=== PATIENT | female | born 1945 | race Caucasian/White ===

== ENCOUNTER → 2017-10-07 08:33 | Outpatient (CLI) | payer MEDICARE, SELFPAY ==
[2017-10-07 10:59] LABS: Anion Gap 4 (5-15); BUN 23 mg/dL (7-18); BUN/Creat Ratio 31.1 RATIO (10-20); Calcium,Total 8.7 mg/dL (8.5-10.1); Chloride 104 mmol/L (98-107); Cholesterol 183 mg/dL (200); Creatinine, Serum 0.74 mg/dL (0.55-1.02); EST Glomerular Filtration Rate 82 mL/min (>60); Est Glom Filt Rate - Afr Amer 99 mL/min (>60); Glucose 112 mg/dL (74-106); High Density Lipoprotein 55 mg/dL; Potassium 4.5 mmol/L (3.5-5.1); Sodium Level 138 mmol/L (136-145); Triglycerides 106 mg/dL; Very Low Density Lipoprotein 21 mg/dL (5-40)
== END ==
PROVIDERS: Family Provider Family Medicine; PCP Family Medicine; Visit Provider Family Medicine
DX: I10 Essential (primary) hypertension (principal)
CPT/HCPCS: 36415; 80048; 80061

== ENCOUNTER → 2018-05-31 08:23 | Outpatient (CLI) | payer MEDICARE, SELFPAY ==
--- NOTE | 2018-05-31 08:26 | BI_ITS ---
MAMMOGRAPHY - BILATERAL SCREENING REASON FOR EXAM: Female, 72 years old. Routine annual screening examination. PERTINENT HISTORY: Mother with breast cancer. Aunt with breast cancer. TECHNIQUE: Digital bilateral breast jonas (3D mammographic acquisition) in the CC and MLO projections. 2-D mediolateral oblique (MLO) and craniocaudad (CC) views of both breasts were obtained. CAD: Full Field Digital Mammography with Computer Added Detection was performed. COMPARISON: Comparison is made with prior study dated November 27, 2016 and June 19, 2015. FINDINGS: Breast Composition: The breasts are almost entirely fatty. There are no dominant masses or suspicious calcifications. Stable small bilateral axillary lymph nodes. No other significant abnormalities are identified. There has been no significant change since the prior study. BI/SCREENING MAMM (CAD), BILAT IMPRESSION: Stable bilateral screening mammogram. Yearly follow-up mammogram recommended. (A) ASSESSMENT CATEGORY: BIRADS Category 2: Benign. A letter regarding these results will be sent to the patient by the facility within 30 days. Approximately 10% of breast cancers are not detected by mammography. A normal mammogram should not delay biopsy of a clinically suspicious abnormality. [id number] Electronically Signed: Aguilar Allen MD at 10:08 EST , Service support ,
== END ==
PROVIDERS: Family Provider Family Medicine; PCP Family Medicine; Referring Provider Family Medicine; Visit Provider Family Medicine
DX: Z12.31 Encounter for screening mammogram for malignant neoplasm of breast (principal)
CPT/HCPCS: 77063; 77067

== ENCOUNTER → 2018-12-24 10:59 | Outpatient (CLI) | payer MEDICARE, SELFPAY ==
[2018-12-24 12:55] LABS: Anion Gap 6 (5-15); BUN 26 mg/dL (7-18); BUN/Creat Ratio 33.9 RATIO (10-20); Calcium,Total 8.7 mg/dL (8.5-10.1); Chloride 106 mmol/L (98-107); Creatinine, Serum 0.77 mg/dL (0.55-1.02); EST Glomerular Filtration Rate 79 mL/min (>60); Est Glom Filt Rate - Afr Amer 95 mL/min (>60); Glucose 81 mg/dL (74-106); Sodium Level 140 mmol/L (136-145)
== END ==
PROVIDERS: Family Provider Family Medicine; PCP Family Medicine; Referring Provider Family Medicine; Visit Provider Family Medicine
DX: I10 Essential (primary) hypertension (principal)
CPT/HCPCS: 36415; 80048

== ENCOUNTER → 2019-01-21 11:40 | Outpatient (CLI) | payer MEDICARE, SELFPAY ==
--- NOTE | 2019-01-21 11:45 | RAD_ITS ---
STUDY: X-RAY - RIGHT KNEE REASON FOR EXAM: Female, 73 years old. Pain TECHNIQUE: 4 view(s) of the knee. COMPARISON: 2013 FINDINGS: Normal visualized distal femur. Normal visualized proximal tibia and fibula. Normal proximal tibiofibular articulation. There is no demonstrated fracture. There is mild degenerative arthrosis of the medial femorotibial compartment. There is severe degenerative arthrosis of the lateral femorotibial compartment with severe joint space narrowing. There is moderate degenerative arthrosis of the patellofemoral articulation. The soft tissue structures are unremarkable. RAD/Knee 4 or More Views IMPRESSION: Degenerative arthrosis. Electronically Signed: Patrice Mena MD at 12:01 EDT , Service support ,
== END ==
PROVIDERS: Family Provider Family Medicine; PCP Family Medicine; Referring Provider Family Medicine; Visit Provider Family Medicine
DX: M25.561 Pain in right knee (principal)
CPT/HCPCS: 73564

== ENCOUNTER → 2019-05-13 10:16 | Outpatient (CLI) | payer MEDICARE, SELFPAY ==
--- NOTE | 2019-05-13 10:21 | RAD_ITS ---
HISTORY: left thigh pain ADDITIONAL HISTORY: None provided. TECHNIQUE: Left femur 2 views Number of images including paperwork: 4 COMPARISON: None FINDINGS: BONES: No acute fracture. JOINTS: No subluxation. Severe degenerative changes of the left knee. SOFT TISSUES: No distinct foreign body. RAD/Femur Min 2 Views IMPRESSION: No acute osseous abnormality. at 0059 Reported and signed by: Debby Colon MD Electronically Signed: Debby Colon MD at 0:59 EST Tel , Service support ,
[2019-05-13 12:42] LABS: Absolute Lymphocyte Count 1.32 X10^3/uL (0.83-4.51); Absolute Neutrophil Count 7.8 X10^3/uL (2.0-7.7); Basophil# 0.06 X10^3/uL; Basophil% 0.6 % (0-1); Eosinophil# 0.07 X10^3/uL; Eosinophils% 0.7 % (0-5); Hematocrit 47.1 % (37-47); Hemoglobin 15.1 g/dL (12.0-15.0); Lymphocyte # 1.32 X10^3/ul (4.0); Lymphocyte % 13.4 % (19-41); Mean Corp Hgb Conc 32.1 g/dL (32-36); Mean Corpuscular Hgb 28.4 pg (27.0-32.0); Mean Corpuscular Volume 88.5 fL (81-99); Monocyte# 0.57 X10^3/uL; Monocyte% 5.8 % (0-10); NRBC Flagged by Analyzer 0 % (0-5); Neutrophil # 7.82 X10^3/uL (2.7-7.7); Neutrophil % 79.3 % (47-70); Platelet Count 338 K/mm3 (150-450); RBC Distribution Width CV 13.8 % (11.6-14.6); RBC Distribution Width SD 44.4 fl (35.1-43.9); Red Blood Count 5.32 M/mm3 (4.2-5.4); White Blood Count 9.9 K/mm3 (4.4-11.0)
[2019-05-13 13:45] LABS: Amylase 22 U/L (25-115); Lipase 179 U/L (73-393); Thyroid Stim Hormone (TSH) 1.84 uIU/mL (0.358-3.74)
== END ==
PROVIDERS: PCP Family Medicine; Referring Provider Family Medicine; Visit Provider Family Medicine
DX: M79.652 Pain in left thigh (principal); K59.9 Functional intestinal disorder, unspecified; I10 Essential (primary) hypertension
CPT/HCPCS: 36415; 73552; 82150; 83690; 84443; 85025

== ENCOUNTER 2019-06-17 13:00 | Outpatient (RCR) | payer MEDICARE, SELFPAY ==
--- NOTE | 2019-05-23 10:34 | HP.PTEVAL_ITS ---
Patient's Visit Information ELEAZAR WATSON is a 73 year old F referred to Physical Therapy by Dr. Georgia Houston MD with a diagnosis of L thigh pain. Date of Evaluation: 05/23/19 Physical Therapist: Joseph Rene DPT - Visit Plan Frequency: 2-3x /Week Duration: 4-6 Weeks Plan: Start wtih light flexion based exercises seated, as patient is unable to lie down currently. Seated HS stretching, lumbar extension as tolerated (slow porgression) May use US if need, but want to focus on core stability, and lumbar ROM. - Subjective Findings: Pt. is here today for her initial evaluation with diagnosis of L thigh pain. Pt. reports having increased pain for a few months now. She reports pain at medial thigh that goes from mid thigh to her knee. Pt. reports no pain while sitting, but has increased pain with all walking and standing. She is now been having to use a FWW for pain control and balance, she did not previosuly use one. Pt. reports no pain extending beyond her knee. Pt. reports no back pian currently either. Pt. reports her Left leg also feels weak at times, and feels like it may give out on her. She reprots no falls or mech of injury. She reports symtoms started after having to walk 1.5 miles while on a vacation. Pt. has been painful ever since, with increasing symptoms. Pt. reports no pain in AMs, but increases throughout the day. Increased pain with getting up and down and pain with sitting<>supine. Pt. is hopeful to reduce symptosm in order to get back to all recreational actviiteis without limitaitons. - Pain L left Pain Intensity (Out of 10): 7 Pain Intensity Range: 4, 10 - Objective POSTURE: pt. has very flexed posture in standing, increasd pain with attempting to improve. Pt. has general flexed posture in sitting as well. PALPATION: No pain with palpation of LLE, throughout. Pt. has no pain with palpation of lumabr spine either. NEURO: normal DTR of BLEs, normal sensation throughout bilateral LEs. No myotomal weakness noted. ROM: Pt. has tight HS- no pain, tight hip flexors- no pain, tigth IT band- no pain. LUMABR SPINE: flexion decreased in symptoms no better, extension- increase NW max loss, SB mod loss bilate increase NW, rotation mod loss increase NW. MMT: Pt. has 5/5 strenght throughout bilateral LEs. Core strength- poor. GAIT: Pt. has flexed posture, increased pain with attempting to increase erect posture. increased pain noted. Pt. has increased pain with increased walking, increased pain in L thigh, decreased upon sitting. STAIRS: Pt. has increased pain with stairs, uses BHR ith controlleve motion ,increased pain with descending. - Special Tests L/S Slump test left side: Negative L/S Slump test right side: Negative L/S Left Straight Leg Raise: Negative L/S Right Straight Leg Raise: Negative Lumbar Standing: Flexion - Mechanical Response: No effect Lumbar Standing: Flexion - Symptoms During Testing: Decreases Lumbar Standing: Flexion - Symptoms After Testing: No better Lumbar Standing: Extension - Mechanical Response: No effect Lumbar Standing: Extension - Symptoms During Testing: Increases Lumbar Standing: Extension - Symptoms After Testing: No worse L Hip Scour: Negative L Hip Quadrant - Intraarticular Pathology: Negative L Hip ELEANOR - Intraarticular Pathology: Negative L Hip FADDIR - Labrum: Negative L Hip Impingement Provocation - Labrum: Negative L Hip Trendelenberg - Glut Medius: Negative L Hip Ori - IT Band: Negative L Hip Resisted Exernal Derotation Test - GT Pain Syndrome: Negative L Knee Robson - Meniscus: Negative L Knee Apley - Meniscus: Negative L Knee Disco Test - Meniscus: Negative - Goals Goal 1:: LTG: Pt. to be I with HEP. Goal Time Frame: 4-6 Weeks Goal 2:: STG: Pt. to sleep throughout the night without increase in symptoms. Goal Time Frame: 2-4 Weeks Goal 3:: STG: Pt. to get up and down from bed without increase in symptoms. Goal Time Frame: 2-4 Weeks Goal 4:: STG: Pt. to walk with FWW unlimited distances with 0-1/10 pain in LLE. Goal Time Frame: 2-4 Weeks Goal 5:: LTG: Pt. to ambulate unlimited distances without LRD without increase in symptoms. Goal Time Frame: 4-6 Weeks Goal 6:: LTG: pt. to have increased lumbar ROM by 50% in all directions without increase in symptoms. Goal Time Frame: 4-6 Weeks - Rehabilitation Potential Physical Therapy Diagnosis: Pt. has signs and symptosm consistent with with L thigh pain, but had no pain with movements of LLE. Pt. did ahve incerased symptosm with movement fo her lumbar spine. Pt. has what appears to be spinal stenosis like symptoms. Pt. has decreased symptoms with sitting and flexion based exercises, increased symptosm with standing and extension based. I would like her to slowly increase extension, work on core strengthening and increased HS/hip flexor length. Rehabilitation Potential: Good - Anticipated Interventions Patient/Client Instruction: Educate patient on: Condition, Plan of Care, Risk Factors, Benefits of Fitness Program For the Purpose of:: To foster healthy habits, To improve decision making, To facilitate caregiver knowledge, To improve self management, To prevent re- injury, To improve ability to perform tasks related to life management, To improve tolerance to ADL's Therapeutic Exercise to Include: Strength training, Power training, Endurance training, Balance training, Postural training, Flexibilty training, Gait and locomotor training, Passive ROM, Active ROM, Dynamic Lumbar Stabilization, Chema Exercises For the Purpose of:: To decrease pain, To increase ROM, To improve nutrient delivery to tissue, To increase oxygenation perfusion, To improve muscle performance and motor function, To improve ability to perform ADL's, To improve gait and locomotor functions, To improve health of tissue, To decrease soft tissue restriction, To increase flexibility/ROM, To improve endurance, To improve balance, To improve safety with gait Manual Therapy Techniques to Include: Mobilization, Passive ROM, Functional dry needling, Soft tissue mobilization For the Purpose of:: To decrease pain, To decrease swelling/inflammation, To i ncrease ROM, To improve nutrient delivery to tissue, To increase oxygenation perfusion Thermo therapy (hot pack): Yes Ultrasound (thermal/non thermal): Yes For the Purpose of:: To decrease swelling/inflammation, To increase ROM Thank you for the opportunity to evaluate your patient. For Medicare and Medicare HMO plans, please review the plan of care and approve it. It will need to be FAXED BACK to us at [phone] for Medicare purposes. For Medicare only, by signing this I certify the plan of care. Please let me know if there are questions or concerns regarding this plan of care. Physician Signature: Date:
--- NOTE | 2019-06-20 10:03 | HP.PTDCSUM ---
HP - PT D/C Summary It has been my pleasure to treat ELEAZAR WATSON under orders from Dr. Georgia Houston MD, for the diagnosis of L thigh pain for a total of 10 visit(s). Discharge Date: 06/17/19 Please see the following information for a summary of their discharge status. - Subjective Subjective: Pt. reports I have been douing better, but not all the way there. Pt. reporst being HEP compliant. Pt. reports always feeling better when she leaves PT. Pt. reports no problems with HEP. Pt. is still using FWW, but not much in home. - Pain L left Pain Intensity (Out of 10): 1 - Overall Improvement % Improvement: 50 - Objective Objective/Function: ROM: LUMBAR SPINE: flexion nil loss NE, extension min/mod loss increase NW, SB ni loss bE, rotation- nil loss NE. Pt. has normal hip ROM bilat. MMT: 4/5 throughout, 4-/5 core strength. TIght hip flexors and HS bilat. GAIT: Pt. was able to ambulate 100' with out AD withotu limitations without increase in symptoms after stretching and core stability today. STAIRS: Pt. to step to pattern with BHR withotu increase in symptoms. - Goals Goal 1:: LTG: Pt. to be I with HEP. Goal Progress: Goal Met Goal 2:: STG: Pt. to sleep throughout the night without increase in symptoms. Goal Progress: Goal Met Goal 3:: STG: Pt. to get up and down from bed without increase in symptoms. Goal Progress: Progressing Goal 4:: STG: Pt. to walk with FWW unlimited distances with 0-1/10 pain in LLE. Goal Progress: Progressing Goal 5:: LTG: Pt. to ambulate unlimited distances without LRD without increase in symptoms. Goal Progress: Progressing Goal 6:: LTG: pt. to have increased lumbar ROM by 50% in all directions without increase in symptoms. Goal Progress: Progressing - Plan Plan: Pt. to be DC from PT at this point intime. Plan is for patient to complete all exercises on her own and to see if she is able to self progress/manage. Pt. reports doctor wants her to try this and if she does not progress as expected to follow up with pain management. - D/C Information Discharge Comments: Pt. was treated for her L leg pain, which appears to be radiating from her back. Pt. has done well with stretching for pelvic positioning and with core stability exercises. Pt. was been progressing, but is to complete her exercises on her own. Per patimaria doloresn physician would like her to complete 6 weeks on HEP and re assess her at that point. Pt. has been instructed in HEP for stretching and core stability exercises. Pt. osman be DC from PT at this point in time. If there are questions or concerns regarding this patient's physical therapy, please feel free to call me at [phone]. Thank you for the referral of this patient. Sincerely, Joseph Rene DPT
== END 2019-06-17 19:00 | disposition home or self-care (01) ==
LOC: PT 13:00
PROVIDERS: PCP Family Medicine; Referring Provider Family Medicine; Visit Provider Family Medicine
DX: M79.652 Pain in left thigh (principal)
CPT/HCPCS: 97110; 97161; 97530

== ENCOUNTER → 2019-07-13 10:52 | Outpatient (CLI) | payer MEDICARE, SELFPAY ==
--- NOTE | 2019-07-13 10:56 | RAD_ITS ---
STUDY: X-RAY - LUMBAR SPINE REASON FOR EXAM: Female, 74 years old. Back pain radiating TECHNIQUE: 5 view(s) of the lumbar spine were obtained including oblique views. COMPARISON: None FINDINGS: Normal lumbar lordosis. There is no substantial scoliosis. There is a normal alignment of the vertebrae. There is multilevel endplate spondylosis of the lumbar vertebrae. There is multi-level degenerative disc disease with multi-level disc space narrowing. Facet joint osteoarthritis. There is atherosclerotic calcification of the abdominal aorta without a demonstrated aneurysm. RAD/L/S Spine Min 4 Views IMPRESSION: Degenerative changes of the spine, as detailed above. Electronically Signed: Aguilar Allen, at 14:45 EDT , Service support ,
[2019-07-13 12:37] LABS: Anion Gap 6 (5-15); BUN 17 mg/dL (7-18); BUN/Creat Ratio 20.9 RATIO (10-20); Calcium,Total 9.1 mg/dL (8.5-10.1); Chloride 105 mmol/L (98-107); Creatinine, Serum 0.81 mg/dL (0.55-1.02); EST Glomerular Filtration Rate 73 mL/min (>60); Est Glom Filt Rate - Afr Amer 89 mL/min (>60); Glucose 119 mg/dL (74-106); Potassium 3.7 mmol/L (3.5-5.1); Sodium Level 140 mmol/L (136-145)
== END ==
PROVIDERS: PCP Family Medicine; Referring Provider Family Medicine; Visit Provider Family Medicine
DX: M54.9 Dorsalgia, unspecified (principal); I10 Essential (primary) hypertension
CPT/HCPCS: 36415; 72110; 80048

== ENCOUNTER → 2019-07-22 10:38 | Outpatient (CLI) | payer MEDICARE, SELFPAY ==
--- NOTE | 2019-07-22 11:30 | MRI_ITS ---
STUDY: MRI LUMBAR SPINE WITHOUT CONTRAST REASON FOR EXAM: Female, 74 years old. Back pain with radiation INTO L LEG X 4 MONTHS TECHNIQUE: Standardized fat and water weighted pulse sequences were obtained in the sagittal and axial planes. COMPARISON: Lumbar spine radiographs 07/13/2019. No prior MRI scan for comparison. FINDINGS: T9-T10: (Sagittal only). Normal endplates. Minimal disc space height narrowing. No ventral extradural defect. Normal central canal and bilateral intervertebral neural foramina. T10-T11: (Sagittal only). Minimal anterior marginal spurs. Normal endplates. Bowel disc space height narrowing. Tiny posterior bulging disc. Normal central canal and bilateral intervertebral neural foramina. T11-T12: (Sagittal only). Benign T11 vertebral body hemangioma. Minimal anterior marginal spurs. Mild disc space height narrowing. Normal central canal and bilateral intervertebral neural foramina. T12-L1: (Sagittal only). Anterior marginal spurs. Normal endplates. Mild disc space height narrowing. Small posterior bulging disc. Normal central canal and bilateral intervertebral neural foramina. Normal lumbar lordosis. There is no substantial scoliosis. Normal conus medullaris that terminates at the T12-L1 disc level. L1-2: Modic type II degenerative vertebral marrow fatty changes underneath the vertebral endplates. Moderate pronounced disc space height narrowing. Normal central canal despite prominent dorsal epidural lipomatosis. Normal bilateral lateral recesses. Mild degenerative facet arthropathy. Normal bilateral intervertebral neural foramina. L2-3: Pronounced on left-sided disc space height narrowing. Mixed Modic type II and type III degenerative changes of the vertebral endplates. Prominent anterior marginal spurs. Minimal degenerative retrolisthesis of L2 on L3. Moderate asymmetric central canal stenosis with an AP canal diameter of 7 mm. Moderate stenosis of the left lateral recesses. Normal right lateral recess. Mild dorsal epidural lipomatosis. Mild degenerative facet arthropathy. Mild stenosis of the left intervertebral neural foramen. Normal right intervertebral neural foramen. L3-4: Modic type II degenerative vertebral marrow fatty changes of the knees vertebral endplates. On the pronounced disc space height narrowing. Mild asymmetric degenerative retrolisthesis of L3 on L4. Moderate central canal stenosis with an AP canal diameter of 7 mm. Mild degenerative facet arthropathy. Normal bilateral intervertebral neural foramina. L4-5: Normal endplates. Moderate left-sided disc space height narrowing. Prominent posterior midline disc extrusion causing severe flattening central canal stenosis. The AP canal diameter is 4 mm. Normal bilateral lateral recesses. Moderate degenerative facet arthropathy. Normal bilateral intervertebral neural foramina. L5-S1: Normal endplates. Moderate disc space height narrowing. Mild degenerative anterolisthesis of L5 on S1. Small posterior paramedian disc protrusion. Moderate central canal stenosis with an AP canal diameter 7 mm. Mild stenosis of the left lateral recess. Moderately pronounced asymmetric degenerative facet arthropathy, greater on the right. Normal bilateral intervertebral neural foramina. Normal visualized sacral ala. Normal visualized paraspinous soft tissue structures. MRI/Spine Lumbar (Routine) IMPRESSION: 1. Severe central canal stenosis at L4-L5 disc space level secondary to prominent posterior midline disc extrusion. 2. Moderate central canal stenosis at L5-S1 disc space level with an AP canal diameter of 7 mm, mild degenerative anterolisthesis of L5 on S1 and moderately pronounced asymmetric degenerative facet arthropathy. 3. Moderate central canal stenosis at L3-L4 disc space level with an AP canal diameter of 7 mm, pronounced disc space height narrowing and mild asymmetric degenerative retrolisthesis of L3 on L4. 4. Moderate asymmetric central canal stenosis at L2-L3 disc space level with an AP canal diameter of 7 mm was the left side and minimal degenerative retrolisthesis of L2 on L3. 5. T11 benign vertebral body hemangioma. Electronically Signed: Herman Ham MD at 13:30 EDT , Service support ,
== END ==
PROVIDERS: PCP Family Medicine; Referring Provider Family Medicine; Visit Provider Family Medicine
DX: M54.9 Dorsalgia, unspecified (principal)
CPT/HCPCS: 72148

== ENCOUNTER 2019-12-15 10:00 | Outpatient (RCR) | payer MEDICARE, SELFPAY ==
--- NOTE | 2019-07-21 07:34 | HP.PTEVAL_ITS ---
Patient's Visit Information ELEAZAR WATSON is a 74 year old F referred to Physical Therapy by Dr. Georgia Houston MD with a diagnosis of Chronic low back pain. Date of Evaluation: 07/20/19 Physical Therapist: Joseph Rene DPT - Visit Plan Frequency: 2x /Week Duration: 6 Weeks Plan: Start with hip flexor/HS stretching, core stability exercises in neutral spine, BLE strengthening. Add in postural awareness activities, gait progression. Progress gait away from FWW to SPC as tolerated and if complete safely with minimal pain. - Subjective Subjective: Pt. is here today for her initial evaluaton with diagnosis of chronic low back pain. Pt. is known to this PT as I have treated her before with positive outcomes for her back. Pt's symptoms started in late 2018/early 2019 after walking 1-2 miles [place] location [place] on [place]. She reported increased posterior/anterior leg pain at that point in time. Pt. was treated was flexion based exercises, core stability progressing into lumbar extension to increase tolerance to all standing exercises/mobility. Pt. was to trial exercises and routine on her own fro 6 weeks. Pt. ws pleased that she did not regress, but reports not having the linear progression that she was hoping for. Pt. now reports increased posterior thigh and calf pain interrmittently with standing and mostly with rolling in bed. She continues to use FWW occassionaly no AD in home, but FWW with all community mobility. Pt. reports being semi consistent with her HEP. She is hopeful to reduce symptoms and progress away from her walker. Pt. is to have MRI later this week. - Pain L posterior thigh Pain Intensity (Out of 10): 0 Pain Intensity Range: 0, 3 L posterior calf Pain Intensity (Out of 10): 2 Pain Intensity Range: 0, 4 - Objective POSTURE: Pt. has general flexed postior, anterior tilt of her pelvis (symmetricall). She lacks TKE on bilateral LEs, L worse than R which forces greater crouched like posture. Posture is still flexed in sitting, but patient is more able to improve in sitting. PALPATION: Pt. has tenderness at L PSIS and L piriformis. She also has increased paint along L posterior thigh and calf. Negative bow string test. NEURO: Pt. has normal sensation of B LEs. Pt. has normal DTR of bilateral LEs. No myotomal weakness noted. ROM: LUMBAR SPINE: flexion: nil loss NE, extension mod loss increase NW, SB min/mod loss bilat increase NW, rotation min/mod loss bilat NE. RLE: ankle WNL, knee- lacking 5 deg of extension; hip- Normal, except tight hip flexors and HS. LLE: ankle WNL; knee- lackign 15 deg of extension; hip WNL, except HS- only 60deg lenth in 90/90 positioning; hip extension to neutral. MMT: BLEs 4/5 throughout, except R knee extension 5-/5; L knee flexion 4/5 with increased pain; hip flexion 4-/5 increase NW (calf and post thigh pain). GAIT: Pt. ambulates with FWW with general flexed posture, improved with VCing. Patient lacks TKE on L side during stance phase. Pt. is able to ambulate upto 200' prior to legs (B becoming generally sore.) Pt.is able ambulate ~100' with out AD, but has increased flexed posture and incresed LLE pain. STAIRS: Step to pattern with heavy use of BHR no increase in pain. - Special Tests L/S Slump test left side: Negative L/S Slump test right side: Negative L/S Left Straight Leg Raise: Negative L/S Right Straight Leg Raise: Negative Lumbar Standing: Flexion - Mechanical Response: No effect Lumbar Standing: Flexion - Symptoms During Testing: Decreases Lumbar Standing: Flexion - Symptoms After Testing: Better Lumbar Standing: Extension - Mechanical Response: No effect Lumbar Standing: Extension - Symptoms During Testing: Abolishes Lumbar Standing: Extension - Symptoms After Testing: No worse Lumbar Standing: Right Side Glides - Mechanical Response: No effect Lumbar Standing: Right Side [place] - Symptoms During Testing: Abolishes Lumbar Standing: Right Side [place] - Symptoms After Testing: No worse Lumbar Standing: Left Side [place] - Mechanical Response: No effect Lumbar Standing: Left Side [place] - Symptoms During Testing: Increases Lumbar Standing: Left Side [place] - Symptoms After Testing: No worse Lumbar Lying: Flexion - Mechanical Response: No effect Lumbar Lying: Flexion - Symptoms During Testing: Decreases Lumbar Lying: Flexion - Symptoms After Testing: Better - Goals Goal 1:: LTG: Pt. to be I with HEP. Goal Time Frame: 4-6 Weeks Goal 2:: STG: pt. to have increasd lumbar extension by 25% allowing for increased erect posture. Goal Time Frame: 2-4 Weeks Goal 3:: LTG: Pt. to walk with LRD community level distances with 0-1/10 in lumbar spine and either LE. Goal Time Frame: 4-6 Weeks Goal 4:: LTG: Pt. to have increased core and BLE strength increased by 1/2 grade of all effected musculature. Goal Time Frame: 4-6 Weeks Goal 5:: STG: Pt. to increased B HS and hip flexor length increased by 25% allowing for improved pelvic positoning. Goal Time Frame: 2-4 Weeks Goal 6:: STG: Pt. to have improved posture in sitting and stance indicating increased postural awareness. Goal Time Frame: 2-4 Weeks - Rehabilitation Potential Physical Therapy Diagnosis: Pt. has signs and symptoms consistent with chronic low back pain. Pt. has poor posture,anterior pelvic tilt, also lacks TKE on her L knee, all of this is adding to even more flexed posture. Pt. had negative slump test and negative SLR bilatrally. She does have increased pain with load applied to lumbar spine ie prolonged standing, supine/sitting/rolling in bed and LE raises. Pt. would benefit from PT to increase HS/hip flexor length to allow of rimproved pelvic positoning, increased core/BLEs strengthening and postural correction exercises allowing for increased ability to complete all functional mobility. Rehabilitation Potential: Good - Anticipated Interventions Patient/Client Instruction: Educate patient on: Condition, Plan of Care, Risk Factors, Benefits of Fitness Program For the Purpose of:: To improve decision making, To facilitate caregiver knowledge, To improve self management, To prevent re-injury, To improve ability to perform tasks related to life management, To improve tolerance to ADL's Therapeutic Exercise to Include: Strength training, Power training, Endurance training, Balance training, Body mechanics, Postural training, Flexibilty training, Gait and locomotor training, Active ROM, Dynamic Lumbar Stabilization, Chema Exercises For the Purpose of:: To decrease pain, To decrease swelling/inflammation, To increase ROM, To improve nutrient delivery to tissue, To increase oxygenation perfusion, To improve muscle performance and motor function, To improve ability to perform ADL's, To increase tolerance to activity/condition/position, To improve gait and locomotor functions, To improve health of tissue, To decrease soft tissue restriction TENS: Yes Cryotherapy (ice pack, ice massage): Yes Thermo therapy (hot pack): Yes For the Purpose of:: To decrease pain, To decrease swelling/inflammation, To increase ROM, To improve nutrient delivery to tissue, To increase oxygenation perfusion Thank you for the opportunity to evaluate your patient. For Medicare and Medicare HMO plans, please review the plan of care and approve it. It will need to be FAXED BACK to us at [phone] for Medicare purposes. For Medicare only, by signing this I certify the plan of care. Please let me know if there are questions or concerns regarding this plan of care. Physician Signature: Date:
--- NOTE | 2019-09-14 10:29 | HP.PT.NRP ---
ELEAZAR WATSON was seen in my office for initial evaluation on 07/20/19. The following Plan of Care was established for this patient: Initial Frequency: 2x /Week Initial Duration: 6 Weeks Patient/Client Instruction: Educate patient on: Condition, Plan of Care, Risk Factors, Benefits of Fitness Program For the Purpose of:: To improve decision making, To facilitate caregiver knowledge, To improve self management, To prevent re-injury, To improve ability to perform tasks related to life management, To improve tolerance to ADL's Therapeutic Exercise to Include: Strength training, Power training, Endurance training, Balance training, Body mechanics, Postural training, Flexibilty training, Gait and locomotor training, Active ROM, Dynamic Lumbar Stabilization, Chema Exercises For the Purpose of:: To decrease pain, To decrease swelling/inflammation, To increase ROM, To improve nutrient delivery to tissue, To increase oxygenation perfusion, To improve muscle performance and motor function, To improve ability to perform ADL's, To increase tolerance to activity/condition/position, To improve gait and locomotor functions, To improve health of tissue, To decrease soft tissue restriction TENS: Yes Cryotherapy (ice pack, ice massage): Yes Thermo therapy (hot pack): Yes For the Purpose of:: To decrease pain, To decrease swelling/inflammation, To increase ROM, To improve nutrient delivery to tissue, To increase oxygenation perfusion This patient was last seen in our office 08/12/19. Pertinent comments regarding their Physical therapy will appear below: Pt. will be DC from PT at this point in time. She followed up with ortho and was determined she needed a lumbar fusion. At this point I will be discontinuing this patient from physical therapy. I would be happy to see this patient again in the future if found appropriate by the physician. Thank you! Joseph Rene, LARAT
--- NOTE | 2019-09-20 16:55 | HP.PTEVAL2_ITS ---
Patient's Visit Information ELEAZAR WATSON is a 74 year old F referred to Physical Therapy by KANCHAN Deshpande with a diagnosis of lumbar fusion L4-S1 DOS: 08/24/19. Date of Evaluation: 09/14/19 Physical Therapist: Joseph Rene DPT - Visit Plan Frequency: 2x /Week Duration: 4-6 Weeks Plan: Start with lumbar isometrics, functional BLE strengthening. Wean from brace and progress ROM of lumbar spine starting in 3 weeks. - Subjective Subjective: Pt. is here today for her initial evaluation with diagnosis of lumbar fusion L4-S1 DOS: 08/24/19. Pt. arrives today with FWW. Pt. reports having minimal pain this date. Pt. reports feeling a lot better overall. She is no longer having leg problems. Pt. went back to see the physcian who was pleased with her current progress. Pt. stayed 3 days in hospital and did experience 2 falls. She has no lasting effects from her falls. Pt. denies N/T, blurred vision, no UMANZOR, no fever and no shortness of breath. pt. is sleeping in a hospital bed with good tolerance. Pt. is hopeful to get back to all walking and house hold activites without limiations. - Objective Objective: POSTURE: Pt. has slight flexed posture. She is wearing her lumbar brace, but does not wear at home. I only wear it if I am walking further. Pt. has equal wt. shift with equal iliac creast heights. PALPATION: Pt. has normal healing incison no signs of infection. Pt. does have some scabbing, but appears to be healing well. NEURO: Pt. has normal sensation and DTR of BLEs. ROM: LUMBAR SPINE: flexion mod loss (Pt. did not push through tightnes), exten mod lo ss, mod loss with rotation and Sb bilateraly. MMT: Pt. has 4/5 strength throughout BLEs. Core strength- poor+. Pt. is able to pelvic tilt, but has difficulty maintaining proper tilt against resistances. GAIT: Pt. ambulates with FWW without LOB, but does have heavy use of AD. Pt. reports no pain, she still lacks TKE on RLE, but is baseline. Pt. reports no pain with walking, but does fatigue after ~250ft. STAIRS: pt. is able to complete with step to pattern with heavy use of railings. - Goals Goal 1:: LTG: PT. to be I with HEP. Goal Time Frame: 4-6 Weeks Goal 2:: STG: Pt. to wean from lumbar brace. Goal Time Frame: 2-4 Weeks Goal 3:: LTG: pt. to have incraesed lumbar ROM by 25% in all directions without increase in symptoms. Goal Time Frame: 4-6 Weeks Goal 4:: LTG: Pt. to have increased BLE and core strength by 1/2 grade throughout. Goal Time Frame: 4-6 Weeks Goal 5:: LTG: Pt. to ambulate > 750ft. with LRD without increase in symptoms. Goal Time Frame: 4-6 Weeks Goal 6:: LTG: Pt. to negotiate 1 flight of steps with 2HR with reciprocal pattern without increase in symptoms. Goal Time Frame: 4-6 Weeks - Rehabilitation Potential Physical Therapy Diagnosis: Pt. has signs and symptoms of status post lumbar fusion L4-S1 DOS: 08/24/19. Pt. has subseqeuent hypomobility, weakness, decreased independence with ADLs and increased difficulty with walking. Rehabilitation Potential: Excellent - Anticipated Interventions Patient/Client Instruction: Educate patient on: Condition, Plan of Care, Risk Factors, Benefits of Fitness Program For the Purpose of:: To facilitate caregiver knowledge, To improve self management, To prevent re-injury, To improve ability to perform tasks related to life management, To improve tolerance to ADL's Therapeutic Exercise to Include: Strength training, Power training, Endurance training, Balance training, Coordination, Agility training, Body mechanics, Postural training, Flexibilty training, Gait and locomotor training, Passive ROM, Active ROM, Dynamic Lumbar Stabilization For the Purpose of:: To decrease pain, To decrease swelling/inflammation, To increase ROM, To improve nutrient delivery to tissue, To increase oxygenation perfusion, To improve muscle performance and motor function, To improve gait and locomotor functions, To improve health of tissue, To decrease soft tissue restriction, To increase flexibility/ROM, To improve endurance, To improve balance, To improve safety with gait Cryotherapy (ice pack, ice massage): Yes For the Purpose of:: To decrease pain, To decrease swelling/inflammation, To increase ROM Thank you for the opportunity to evaluate your patient. For Medicare and Medicare HMO plans, please review the plan of care and approve it. It will need to be FAXED BACK to us at [phone] for Medicare purposes. For Medicare only, by signing this I certify the plan of care. Please let me know if there are questions or concerns regarding this plan of care. Physician Signature: Date:
--- NOTE | 2019-10-25 14:49 | HP.PTRE(2) ---
Jamila An, JARON-C, It has been my pleasure to treat ELEAZAR WATSON over the last 10 visits for lumbar fusion L4-S1 DOS: 08/24/19. Please see the progress note below for an update on the physical therapy plan of care! Subjective: Pt. reports overall I am doing well. Pt. reports being 65% better overall. Pt. reprots no pain currently. Objective/Function/Assessment: ROM: Lumbar spine: Pt. has nil/min loss wit flexion NE, SB adn rotation min/nil loss NE, exte min loss NE, Tight HS, but impriving. PT. has fair- core strenth- and 4/5 general strength throughout BLEs. GAIT: Pt. is able to ambulate 350' withFWW with good pattern, slight flexed posture. Pt. is able to ambulate houshold distances without AD. She reports being fearful to prgress out of home, but I assured her that this is okay. Pt. continues to progress, but still needs to work on strength and weaning from AD as able. I am pleased with progress, but still needs more PT. Plan Plan: Pt. continues to progress, but still needs to work on strength and weaning from AD as able. I am pleased with progress, but still needs more PT. Work on strength, core and BLEs, progressing from AD as tolerated. Goals Goal 1:: LTG: PT. to be I with HEP. Goal Time Frame: 4-6 Weeks Goal Progress: Progressing Goal 2:: STG: Pt. to wean from lumbar brace. Goal Time Frame: 2-4 Weeks Goal Progress: Goal Met Goal 3:: LTG: pt. to have incraesed lumbar ROM by 25% in all directions without increase in symptoms. Goal Time Frame: 4-6 Weeks Goal Progress: Goal Met Goal 4:: LTG: Pt. to have increased BLE and core strength by 1/2 grade throughout. Goal Time Frame: 4-6 Weeks Goal Progress: Progressing Goal 5:: LTG: Pt. to ambulate > 750ft. with LRD without increase in symptoms. Goal Time Frame: 4-6 Weeks Goal Progress: Progressing Goal 6:: LTG: Pt. to negotiate 1 flight of steps with 2HR with reciprocal pattern without increase in symptoms. Goal Time Frame: 4-6 Weeks Goal Progress: Progressing Anticipated Interventions Patient/Client Instruction: Educate patient on: Condition, Plan of Care, Risk Factors, Benefits of Fitness Program For the Purpose of:: To facilitate caregiver knowledge, To improve self management, To prevent re-injury, To improve ability to perform tasks related to life management, To improve tolerance to ADL's Therapeutic Exercise to Include: Strength training, Power training, Endurance training, Balance training, Coordination, Agility training, Body mechanics, Postural training, Flexibilty training, Gait and locomotor training, Passive ROM, Active ROM, Dynamic Lumbar Stabilization For the Purpose of:: To decrease pain, To decrease swelling/inflammation, To increase ROM, To improve nutrient delivery to tissue, To increase oxygenation perfusion, To improve muscle performance and motor function, To improve gait and locomotor functions, To improve health of tissue, To decrease soft tissue restriction, To increase flexibility/ROM, To improve endurance, To improve balance, To improve safety with gait Cryotherapy (ice pack, ice massage): Yes For the Purpose of:: To decrease pain, To decrease swelling/inflammation, To increase ROM Please do not hesitate to contact me at [phone] by phone or if you have questions or concerns regarding this new plan of care! Sincerely, LARA CentenoT
--- NOTE | 2019-11-22 14:40 | HP.PTRE(2)_ITS ---
Jamila An, JARON-C, It has been my pleasure to treat ELEAZAR WATSON over the last 17 visits for lumbar fusion L4-S1 DOS: 08/24/19. Please see the progress note below for an update on the physical therapy plan of care! Subjective: Pt. reports overall doing better. 75% better. Pt. reports having intemittent B knee pain L worse than R. Pt. did see her physician ([facility]) who was pleased with continued PT. Pt. reports no back pain, but is still using FWW with gait. Pt. would like to progress to a cane or no AD. Pt. is HEP compliant. Objective/Function/Assessment: Pt. completed all PT without adverse reaction. Pt. is progressing very well. pt. has good core strengh and improving BLE strength. Pt. is limited with her ROM of B knees (L worse than R). 5 MWT 350' 2:48 minutes. Paused due to fatigue. Pt complete TUG with time of 13:04 sec. Pt. has 5/5 strength throughout BLEs, except B knee ext 4+/5; hip abd 4+/5, hip e xtension 4/5. FGA . STAIRS: Pt. is able to complete with BHR with reciprocal pattern. Pt. has good lumbar ROM min loss in all directions no pain noted. Pt. is doing overall well. Pt. has minimal to no pain overall in back, she does seem to be limited with her L knee due to OA and resultant limited ROM. Pt. is improving gait pattern and balance, but would still benefit from PT to progress overall functional mobility getting back to all recreational walking and home activities without limitations. Plan Plan: Extended POC x2 visits per week for 3 weeks to progress functional mobility, balance and stair negotiation in order to get back to all household mobility and community acitivites without limitations. Goals Goal 1:: LTG: PT. to be I with HEP. Goal Time Frame: 4-6 Weeks Goal Progress: Progressing Goal 2:: STG: Pt. to wean from lumbar brace. Goal Time Frame: 2-4 Weeks Goal Progress: Goal Met Goal 3:: LTG: pt. to have incraesed lumbar ROM by 25% in all directions without increase in symptoms. Goal Time Frame: 4-6 Weeks Goal Progress: Goal Met Goal 4:: LTG: Pt. to have increased BLE and core strength by 1/2 grade throughout. Goal Time Frame: 4-6 Weeks Goal Progress: Progressing Goal 5:: LTG: Pt. to ambulate > 750ft. with LRD without increase in symptoms. Goal Time Frame: 4-6 Weeks Goal Progress: Progressing Goal 6:: LTG: Pt. to negotiate 1 flight of steps with 2HR with reciprocal pattern without increase in symptoms. Goal Time Frame: 4-6 Weeks Goal Progress: Progressing Anticipated Interventions Patient/Client Instruction: Educate patient on: Condition, Plan of Care, Risk Factors, Benefits of Fitness Program For the Purpose of:: To facilitate caregiver knowledge, To improve self management, To prevent re-injury, To improve ability to perform tasks related to life management, To improve tolerance to ADL's Therapeutic Exercise to Include: Strength training, Power training, Endurance training, Balance training, Coordination, Agility training, Body mechanics, Postural training, Flexibilty training, Gait and locomotor training, Passive ROM, Active ROM, Dynamic Lumbar Stabilization For the Purpose of:: To decrease pain, To decrease swelling/inflammation, To increase ROM, To improve nutrient delivery to tissue, To increase oxygenation perfusion, To improve muscle performance and motor function, To improve gait and locomotor functions, To improve health of tissue, To decrease soft tissue restriction, To increase flexibility/ROM, To improve endurance, To improve balance, To improve safety with gait Cryotherapy (ice pack, ice massage): Yes For the Purpose of:: To decrease pain, To decrease swelling/inflammation, To increase ROM Please do not hesitate to contact me at [phone] by phone or if you have questions or concerns regarding this new plan of care! Sincerely, Joseph Rene DPT
--- NOTE | 2019-12-15 13:51 | HP.PTDCS(2) ---
It has been my pleasure to treat ELEAZAR WATSON referred by KANCHAN Deshpande, with the diagnosis of lumbar fusion L4-S1 DOS: 08/24/19 for a total of 25 visit(s). Discharge Date: Please see the following information for a summary of their discharge status. Subjective: Pt. reports no new issues. Pt. contiunes to progress with core strength and back pain. Pt. is still having some L knee pain which she is seeing physician about. Pt. reports that her back is 95% better overall. % Improvement: 95 Objective/Function/Assessment: ROM: Lumbar spine: flexion- min loss NE, extension min/mod loss NE, SB min loss NE, rotation min loss bilat NE. Pt. has good HS length with out incrase in symptoms. MMT: Core strength- fair-. Pt. has good strength in BLEs as well. No signs of myotomal weakness, but does have some weakness with L kne extension, HS and hip abd. GAIT: Pt. is able to ambulate with single point cane. She does ambulate with slight L knee flexion and antalgic pattern during L stance phase. STAIRS: Pt. is able to complete with 2 HR with step to pattern, but does have increased L knee pain during ascending and descending. Patient Goals: Improve Mobility, Improve Function, Walk Normal, Maneuver Steps, Improve ROM, Sleep Normal Goal 1:: LTG: PT. to be I with HEP. Goal Progress: Goal Met Goal 2:: STG: Pt. to wean from lumbar brace. Goal Progress: Goal Met Goal 3:: LTG: pt. to have incraesed lumbar ROM by 25% in all directions without increase in symptoms. Goal Progress: Goal Met Goal 4:: LTG: Pt. to have increased BLE and core strength by 1/2 grade throughout. Goal Progress: Progressing Goal 5:: LTG: Pt. to ambulate > 750ft. with LRD without increase in symptoms. Goal Progress: Goal Met Goal 6:: LTG: Pt. to negotiate 1 flight of steps with 2HR with reciprocal pattern without increase in symptoms. Goal Progress: Progressing Plan: Pt. to be DC from PT at this point in time. He back pain is gone and is doing very well. She does have limited L knee ROM and pain secondary to what appears as L knee arthritis. Pt. will be DC from PT for her lumbar spine surgery at this point in time. If there are questions or concerns regarding this patient's physical therapy, please feel free to call me at [phone]. Thank you for the referral of this patient. Sincerely, LARA CentenoT
== END 2019-12-15 14:39 | disposition home or self-care (01) ==
LOC: PT 10:00
PROVIDERS: PCP Family Medicine; Referring Provider Nurse Practitioner Acute Care; Visit Provider Nurse Practitioner Acute Care
DX: M54.9 Dorsalgia, unspecified (principal); G89.29 Other chronic pain; M17.12 Unilateral primary osteoarthritis, left knee; Z98.1 Arthrodesis status
CPT/HCPCS: 97110; 97161; 97164; 97530

== ENCOUNTER 2020-04-25 11:00 | Outpatient (RCR) | payer MEDICARE, SELFPAY ==
--- NOTE | 2019-12-20 16:41 | HP.PTEVAL_ITS ---
Patient's Visit Information ELEAZAR WATSON is a 74 year old F referred to Physical Therapy by Dr. Georgia Houston MD with a diagnosis of L knee OA. Date of Evaluation: 12/20/19 Physical Therapist: Joseph Rene DPT - Visit Plan Frequency: 2x /Week Duration: 4 Weeks Plan: Start with US to medial joint line, HS stretching, OKC quad/glute/hip abductor strengthening. - Subjective Pt. is here today for her initial evaluation with diagnosis of L knee OA unilaterally. Pt. is known to this PT as I was treating her after her lumbar fusion. Pt. has been doing well, but has been limited with her mobility secondary to her L knee pain. Pt. reports having pain for months to years, but seems to be getting worse. Pt. has no had any injections in her knee, but the plan to is have injections for joint lubrication. Pt. is scheduled for this jonas rrow. Pt. reports no N/T, and no pain at rest,but does have increased pain with walking, stairs, standing and squating. Pt. is able to sleep well and has good relief with use of Excedrin. Pt. is hopeful to reduce her symptoms in order to get back to all recreational and household work without limitations. - Pain L knee Pain Intensity (Out of 10): 3 Pain Intensity Range: 0, 6 - Objective POSTURE: Pt. has slight flexed posture, increased lateral wt. shift to R side, with lacking TKE on LLE. PALPATION: Pt. has increased tenderness at medial joint line of L knee, sligth increase in edema in this region as well. NEURO: Pt. has normal sensation in BLE and normal DTR of BLEs. ROM: L knee- 0-15-98deg. Pt. has pain limiting further ROM in both directions. MMT: LLE- 4/5 throughout, except knee ext 4+/5. Pt. reports no pain with testing. - Goals Goal 1:: LTG: Pt. to be I with HEP. Goal Time Frame: 4-6 Weeks Goal 2:: STG: Pt. to walk 250' with single point cane with 0-2/10 pain in L knee. Goal Time Frame: 2-4 Weeks Goal 3:: LTG: Pt. to ambulate all community level distances with single point cane without increase in symptoms. Goal Time Frame: 4-6 Weeks Goal 4:: LTG: Pt. to have increased LLE strengthening by 1/2 grade of all effected musculature. Goal Time Frame: 4-6 Weeks - Rehabilitation Potential Physical Therapy Diagnosis: Pt. has signs and symptoms consistent with L knee OA with subsequent hypomobility, pain and weakness. Pt. would benefit from PT to address the above limitations progressing tolerance to gait and functional activities. Rehabilitation Potential: Good - Anticipated Interventions Patient/Client Instruction: Educate patient on: Condition, Plan of Care, Risk Factors, Benefits of Fitness Program For the Purpose of:: To facilitate caregiver knowledge, To improve self management, To prevent re-injury, To improve ability to perform tasks related to life management, To improve tolerance to ADL's Therapeutic Exercise to Include: Strength training, Power training, Postural training, Flexibilty training, Gait and locomotor training, Passive ROM, Active ROM For the Purpose of:: To decrease pain, To decrease swelling/inflammation, To increase ROM, To improve nutrient delivery to tissue, To increase oxygenation perfusion, To improve muscle performance and motor function, To improve ability to perform ADL's, To improve health of tissue, To decrease soft tissue restriction, To increase flexibility/ROM Ultrasound (thermal/non thermal): Yes For the Purpose of:: To decrease pain, To decrease swelling/inflammation, To increase ROM, To improve nutrient delivery to tissue, To improve muscle performance and motor function Thank you for the opportunity to evaluate your patient. For Medicare and Medicare HMO plans, please review the plan of care and approve it. It will need to be FAXED BACK to us at [phone] for Medicare purposes. For Medicare only, by signing this I certify the plan of care. Please let me know if there are questions or concerns regarding this plan of care. Physician Signature: Date:
--- NOTE | 2020-02-07 11:19 | HP.PTREVAL_ITS ---
Dr. Georgia Houston MD, It has been my pleasure to treat ELEAZAR WATSON over the last 10 visits for L knee OA. Please see the progress note below for an update on the physical therapy plan of care! Subjective: Pt. reports overall doing well. She has been having reduced L knee pain, she did report a few sharp low back pains, but has not been there since. She is back to walking with cane without issues. Objective/Function: ROM: L knee 0-8-110deg. MMT: LLE- ankle 5/5 throughout; knee- ext 4+/5, flexion 4+/5; hip- flexion 4+/5, abd 4/5, ext 4/5. Core strength- fair. GAIT: Pt. ambulated with single point cane. Pt. still lacks TKE, but has improved upright posture and endurance as she is walking upto 500' now. Pt. is overall doing better. She does have occassional increase in L knee pain with walking, but typically resolves with walking. Plan Plan: Cont. with POC, progressing to x1 weekly over the next few weeks then progressing away from PT. Goals Goal 1:: LTG: Pt. to be I with HEP. Goal Time Frame: 4-6 Weeks Goal 2:: STG: Pt. to walk 250' with single point cane with 0-2/10 pain in L knee. Goal Time Frame: 2-4 Weeks Goal Progress: Goal Met Goal 3:: LTG: Pt. to ambulate all community level distances with single point cane without increase in symptoms. Goal Time Frame: 4-6 Weeks Goal Progress: Progressing Goal 4:: LTG: Pt. to have increased LLE strengthening by 1/2 grade of all effected musculature. Goal Time Frame: 4-6 Weeks Goal Progress: Progressing Anticipated Interventions Patient/Client Instruction: Educate patient on: Condition, Plan of Care, Risk Factors, Benefits of Fitness Program For the Purpose of:: To facilitate caregiver knowledge, To improve self management, To prevent re-injury, To improve ability to perform tasks related to life management, To improve tolerance to ADL's Therapeutic Exercise to Include: Strength training, Power training, Postural training, Flexibilty training, Gait and locomotor training, Passive ROM, Active ROM For the Purpose of:: To decrease pain, To decrease swelling/inflammation, To increase ROM, To improve nutrient delivery to tissue, To increase oxygenation perfusion, To improve muscle performance and motor function, To improve ability to perform ADL's, To improve health of tissue, To decrease soft tissue rest riction, To increase flexibility/ROM Ultrasound (thermal/non thermal): Yes For the Purpose of:: To decrease pain, To decrease swelling/inflammation, To increase ROM, To improve nutrient delivery to tissue, To improve muscle performance and motor function Please do not hesitate to contact me at [phone] by phone or if you have questions or concerns regarding this new plan of care! Sincerely, LARA CentenoT
--- NOTE | 2020-04-04 13:13 | HP.PTREVAL ---
Dr. Georgia Houston MD, It has been my pleasure to treat ELEAZAR WATSON over the last 20 visits for L knee OA. Please see the progress note below for an update on the physical therapy plan of care! Subjective: Pt. reports being 80% better overall. just a little bit of soreness in her knee today, but overall not too bad. Pt. reports being HEP compliant. Objective/Function: Pt. did well with testing today. Pt. is able to walk 675ft. with 6 min walk test today with using cane. Pt. is FILIBERTO with her cane. Pt. has improved gait pattern, but does lack TKE of her L knee, effecting stance phase of pain. Pt. reports minimal pain with walking today. MMT: 4+/5 throughout BLEs, no increase in L knee pain or LBP with testing. STAIRS: Pt. is able to ascend with reciprocal pattern with slight functional weakness with pushing off with LLE. Pt. does descending with step to pattern. Use of BHR throughout. Mild increase in symptoms with descending. Plan Plan: Progress to HEP in gym. Pt. plans to attend [facility] and complete gym exercises once done with PT. PRogress gym exercises to increase safe and proper transition of her L knee pain. x1 per week for 3 weeks. Goals Goal 1:: LTG: Pt. to be I with HEP. Goal Time Frame: 4-6 Weeks Goal Progress: Progressing Goal 2:: STG: Pt. to walk 250' with single point cane with 0-2/10 pain in L knee. NEW goal (04/04/20): pt. to ambulate 1000+ without increas in symptoms with single point cane. Goal Time Frame: 2-4 Weeks Goal Progress: Progressing Goal 3:: LTG: Pt. to ambulate all community level distances with single point cane without increase in symptoms. Goal Time Frame: 4-6 Weeks Goal Progress: Progressing Goal 4:: LTG: Pt. to have increased LLE strengthening by 1/2 grade of all effected musculature. Goal Time Frame: 4-6 Weeks Goal Progress: Goal Met Goal 5:: LTG: Pt. to be independent with gym exercises allowing for safe transition to local gym routine. Goal Time Frame: 2-4 Weeks Goal Progress: Progressing Anticipated Interventions Patient/Client Instruction: Educate patient on: Condition, Plan of Care, Risk Factors, Benefits of Fitness Program For the Purpose of:: To facilitate caregiver knowledge, To improve self management, To prevent re-injury, To improve ability to perform tasks related to life management, To improve tolerance to ADL's Therapeutic Exercise to Include: Strength training, Power training, Postural training, Flexibilty training, Gait and locomotor training, Passive ROM, Active ROM For the Purpose of:: To decrease pain, To decrease swelling/inflammation, To increase ROM, To improve nutrient delivery to tissue, To increase oxygenation perfusion, To improve muscle performance and motor function, To improve ability to perform ADL's, To improve health of tissue, To decrease soft tissue restriction, To increase flexibility/ROM Ultrasound (thermal/non thermal): Yes For the Purpose of:: To decrease pain, To decrease swelling/inflammation, To increase ROM, To improve nutrient delivery to tissue, To improve muscle performance and motor function Please do not hesitate to contact me at [phone] by phone or if you have questions or concerns regarding this new plan of care! Sincerely, Joseph Rene DPT
== END 2020-04-25 19:00 | disposition home or self-care (01) ==
LOC: PT 11:00
PROVIDERS: PCP Family Medicine; Referring Provider Family Medicine; Visit Provider Family Medicine
DX: M17.12 Unilateral primary osteoarthritis, left knee (principal)
CPT/HCPCS: 97035; 97110; 97161; 97164; 97530

== ENCOUNTER → 2020-11-19 08:57 | Outpatient (CLI) | payer MEDICARE, SELFPAY ==
[2020-11-19 09:36] LABS: Albumin, Serum 3.7 g/dL (3.2-5.0)
== END ==
PROVIDERS: PCP Family Medicine; Referring Provider Specialist; Visit Provider Specialist
DX: Z01.812 Encounter for preprocedural laboratory examination (principal)
CPT/HCPCS: 36415; 82040

== ENCOUNTER → 2021-01-24 10:07 | Outpatient (CLI) | payer MEDICARE, SELFPAY ==
[2021-01-24 12:59] LABS: Anion Gap 6 (5-15); BUN 27 mg/dL (7-18); BUN/Creat Ratio 23.5 RATIO (10-20); Calcium,Total 8.9 mg/dL (8.5-10.1); Chloride 105 mmol/L (98-107); Cholesterol 106 mg/dL (200); Creatinine, Serum 1.15 mg/dL (0.55-1.02); EST Glomerular Filtration Rate 49 mL/min (>60); Est Glom Filt Rate - Afr Amer 59 mL/min (>60); Glucose 127 mg/dL (74-106); High Density Lipoprotein 55 mg/dL; Potassium 3.6 mmol/L (3.5-5.1); Sodium Level 137 mmol/L (136-145); Triglycerides 89 mg/dL; Very Low Density Lipoprotein 18 mg/dL (5-40)
== END ==
PROVIDERS: PCP Family Medicine; Referring Provider Family Medicine; Visit Provider Family Medicine
DX: I10 Essential (primary) hypertension (principal)
CPT/HCPCS: 36415; 80048; 80061

== ENCOUNTER 2021-03-06 13:00 | Outpatient (RCR) | payer MEDICARE, SELFPAY ==
--- NOTE | 2020-12-03 17:53 | HP.PTEVAL_ITS ---
Patient's Visit Information ELEAZAR WATSON is a 75 year old F referred to Physical Therapy by Ben Kaur PA-C with a diagnosis of OA L KNEE S/P TKR 11/27/20. Date of Evaluation: 12/03/20 Physical Therapist: Peyton Hess, PT, Cert MDT - Visit Plan Frequency: 2-3x /Week Duration: 4-6 Weeks Plan: *BACK SURGERY LAST YEAR*. L TKR REHAB PER PROTOCOL. GAIT TRAINING. BALANCE TRAINING. - Subjective Work/Leisure: RETIRED. Present symptoms: LEFT KNEE PAIN. I STILL HAVE TINGLING IN MY LEFT FOOT FROM MY BACK SURGERY - 2019. Present since: YEARS. Pain Scale: WORST 5/10, LEAST 1/10. Currently: 05/06. Commenced as a result of: ARTHRITS. Symptoms at onset: L KNEE PAIN. Worse: WALKING ON IT, TURNING OVER IN BED, BENDING IT. Better: SIT DOWN, ICE MACHINE, DRUGS. Disturbed sleep: YES. Previous history/Previous treatment: NO PRIOR L KNEE SX'S. GEL SHOTS - THEY DIDN'T WORK. PHYSICAL THERAPY. Treatment this episode: L TKR 11/27/[address] JONES AT [facility]. STAYED IN THE HOSPITAL OVER-NIGHT THEN HOME THURSDAY THE NEXT DAY. WAS SCHEDULED FOR OUT-PATIENT THERAPY THURSDAY AND WAS IN TOO MUCH PAIN AND COULDN'T FACE THE 3 STEPS FROM HER KITCHEN INTO HER GARAGE AT THAT TIME SO R/X'S FOR TODAY. ABLE TO COME DOWN 3 STEPS WITH HR INDEP'LY TODAY. Gait: ONLY WALKING WHEN SHE HAS TO AT HOME SO FAR - ROOM TO ROOM NEEDED WITH FWW. Accidents: NO. Imaging: X-RAY POST SURGERY LOOKED GOOD PER PATIENT REPORT. PMH: HTN, HIGH CHOLESTROL. BACK SURGERY SPRING 2019. OTHER: PATIENT REPORTS SHE IS NOTICING SWELLING IN HER LEG GETTING READY TODAY AND HASN'T WORN LISETTE HOSE SINCE THURSDAY OR THURSDAY. STATES HOSE ARE TOO TIGHT. PATIENT REPORTS SHE WAS INSTRUCTED TO TAKE HER BANDAGE OFF IN A WEEK BUT NOT TO REMOVE THE WHITE STRIPS. FOLLOW UP WITH DR. JONES'S PA PENDING 12/13/20. PATIENT REPORTS SHE IS DOING HER HOME EX'S BUT NOT ALL AT ONCE. DOING ABOUT 40 REPS OF EASY EX'S (AP'S AND GS'S). BENDING KNEE ABOUT 20 REPS AND CAN'T LIFT LEG. - Objective GAIT: THIS PATIENT IS BROUGHT BACK TO PT TODAY BY HER IN A W/C. SHE DEMO'S GAIT WITH FWW INDEP'LY IN THE TREATMENT ROOM. SHE IS LIMPING ON THE LLE AND VERY UE DEPENDENT ON THE WALKER BUT NO LOB. WALKER ADJUSTED SLIGHTLY TO TRY TO GET BETTER FIT AND PATIENT WANTS TO TRY NEW SETTING. WOMAC score: 74/96. TU.30 SEC. Girth L Patella 52 cm. Girth 6 inch suprapatella 72 cm. L knee flexion AROM: 83 degress. L knee ext AROM: -19. L knee flex MMT; 3-/5. L knee ext MMT 2+/5. L hip MMT 2+/5. R MMT: hip flex 4-/5, knee flex 4/5, knee ext 4/5, hip ext 4/5, hip abd 4/5. Palpation: L LE INCISIONS ARE COVERED WITH BANDAGES BUT ARE NOT SURROUNDED BY EXCESSIVE REDNESS. PATIENT PLANS TO REMOVE BANDAGES TOMORROW PER PHYSICIAN AND THIS PT REVIEWED SIGNS OF INFECTION TO BE ON THE LOOK OUT FOR. TRANSFERS - PATIENT REQUIRES VERY MIN ASSIST TO WITH LLE TRANSFERING FROM SIT TO SUPINE AND REVERSE. INDEP SIT TO STAND AND REVERSE WITH UE ASSIST. - Goals Goal 1:: PATIENT WILL BE INDEP AND SAFE WITH GAIT ON LEVEL SURFACES AND UP AND DOWN STEPS WITH LEAST ASSISTIVE DEVICE. Goal Time Frame: 4-6 Weeks Goal 2:: INCREASE FUNCTIONAL ROM OF LEFT LE TO EASE ADL'S Goal Time Frame: 4-6 Weeks Goal 3:: INCREASE FUNCTIONAL STRENGTH OF LEFT LE TO EASE ADL'S Goal Time Frame: 4-6 Weeks Goal 4:: IMPROVE WOMAC SCORE BY 5 POINTS Goal Time Frame: 4-6 Weeks Goal 5:: PATIENT WILL BE INDEP WITH A HEP FOR CONTINUED IMPROVEMENT ONCE FORMAL PHYSICAL THERAPY CONCLUDES. Goal Time Frame: 4-6 Weeks - Rehabilitation Potential Physical Therapy Diagnosis: . - Anticipated Interventions Patient/Client Instruction: Educate patient on: Condition, Plan of Care, Risk Factors For the Purpose of:: To improve self management Therapeutic Exercise to Include: Strength training, Balance training, Body mechanics, Postural training, Flexibilty training, Gait and locomotor training, Neuromotor development, Active ROM, Dynamic Lumbar Stabilization For the Purpose of:: To decrease pain, To improve muscle performance and motor function, To increase tolerance to activity/condition/position, To improve ability of physical actions for home/community/work/leisure, To improve gait and locomotor functions, To decrease soft tissue restriction, To increase flexibility/ROM, To improve balance, To improve safety with gait Cryotherapy (ice pack, ice massage): Yes For the Purpose of:: To decrease pain, To decrease swelling/inflammation Thank you for the opportunity to evaluate your patient. For Medicare and Medicare HMO plans, please review the plan of care and approve it. It will need to be FAXED BACK to us at [phone] for Medicare purposes. For Medicare only, by signing this I certify the plan of care. Please let me know if there are questions or concerns regarding this plan of care. Physician Signature: Date:
--- NOTE | 2020-12-24 15:24 | HP.PTREVAL ---
Ben Kaur PA-C, It has been my pleasure to treat ELEAZAR WATSON over the last 10 visits for OA L KNEE S/P TKR 11/27/20. Please see the progress note below for an update on the physical therapy plan of care! Subjective: PATIENT REPORTS SHE IS GETTING BETTER. INTERMITTENT KNEE PAIN UP TO 5/10. PATIENT REPORTS THE SWELLING IN HER FOOT IS GETTING BETTER. GETTING HER SHOE ON EASIER TODAY. REPORTS THE SWELLING IS GETTING BETTER SLOWLY. NO CALF PAIN. Objective/Function: PATIENT WAS SEEN TODAY FOR RE-ASSESSMENT OF PROGRESS TOWARD THE SET PT GOALS AND THE NEED FOR FURTHER PHYSICAL THERAPY VS READINESS FOR DISCHARGE. PATIENT IS MAKING GOOD PROGRESS TOWARD ALL PT GOALS AND IS A GOOD CANDIDATE TO CONTINUE PT BASED ON PRORESS MADE AND ROOM FOR FUTHER IMPROVEMENT. UPON EXAM TODAY: TU.46 SEC WITHOUT AD. Girth L Patella 50.5 cm. Girth 6 inch suprapatella 70 cm. L knee flexion AROM: 110 degress. L knee ext AROM: -10. L knee flex MMT; 3-/5. L knee ext MMT 3-/5. L hip MMT 4-/5. R MMT: hip flex 4-/5, knee flex 4/5, knee ext 4/5, hip ext 4/5, hip abd 4/5. Palpation: L LE INCISIONS LOOK GOOD WITHOUT ANY SIGNS OF INFECTION. TRANSFERS - LIGHT ONE UE ASSIST REQUIRED TO TRANSFER FROM SIT TO STAND FROM BLUE CHAIR WITHOUT FOAM. INDEP TRANSFER NOW SIT TO SUPINE AND REVERSE WITHOUT USE OF UE TO ASSIST LLE. Plan Plan: Cont to progress functional strength and endurance, gait, and ROM. Balance/Gait/Functional tests - Balance/Special Test Scores Lower Extremity Functional Score: 39 Goals Goal 1:: PATIENT WILL BE INDEP AND SAFE WITH GAIT ON LEVEL SURFACES AND UP AND DOWN STEPS WITH LEAST ASSISTIVE DEVICE. Goal Time Frame: 4-6 Weeks Goal Progress: Progressing Goal 2:: INCREASE FUNCTIONAL ROM OF LEFT LE TO EASE ADL'S Goal Time Frame: 4-6 Weeks Goal Progress: Progressing Goal 3:: INCREASE FUNCTIONAL STRENGTH OF LEFT LE TO EASE ADL'S Goal Time Frame: 4-6 Weeks Goal Progress: Progressing Goal 4:: IMPROVE WOMAC SCORE BY 5 POINTS Goal Time Frame: 4-6 Weeks Goal 5:: PATIENT WILL BE INDEP WITH A HEP FOR CONTINUED IMPROVEMENT ONCE FORMAL PHYSICAL THERAPY CONCLUDES. Goal Time Frame: 4-6 Weeks Goal Progress: Progressing Anticipated Interventions Patient/Client Instruction: Educate patient on: Condition, Plan of Care, Risk Factors For the Purpose of:: To improve self management Therapeutic Exercise to Include: Strength training, Balance training, Body mechanics, Postural training, Flexibilty training, Gait and locomotor training, Neuromotor development, Active ROM, Dynamic Lumbar Stabilization For the Purpose of:: To decrease pain, To improve muscle performance and motor function, To increase tolerance to activity/condition/position, To improve ability of physical actions for home/community/work/leisure, To improve gait and locomotor functions, To decrease soft tissue restriction, To increase flexibility/ROM, To improve balance, To improve safety with gait Cryotherapy (ice pack, ice massage): Yes For the Purpose of:: To decrease pain, To decrease swelling/inflammation Please do not hesitate to contact me at [phone] by phone or if you have questions or concerns regarding this new plan of care! Sincerely, Peyton Hess, PT, Cert MDT
--- NOTE | 2021-01-14 14:47 | HP.PTREVAL ---
Ben Kaur PA-C, It has been my pleasure to treat ELEAZAR WATSON over the last 19 visits for OA L KNEE S/P TKR 11/27/20. Please see the progress note below for an update on the physical therapy plan of care! Subjective: Pt. reports overall doing well. Pt. is no longer having much pain during the day. She is sleeping well, but is having some pain/stiffness in AMs. Pt. arrives using cane today with good gait pattern. Objective/Function: ROM: AROM 0-2-113deg. PROM : 0-0-119deg,. MMT: L knee: ext 4+/5, flexion 5-/5; hip- flexion 4/5, abd 4/5, ext 4+/5. TUG 12.4 sec without AD. STAIRS: reciprocal pattern with slight LLE functional weakness Plan Plan: Pt. still has some minor ROM limitations and strengthen limitations. I would like to continue to see her with focus on end range of motion, functional gait progression and LLE strengthening. Balance/Gait/Functional tests - Balance/Special Test Scores Lower Extremity Functional Score: 39 Goals Goal 1:: PATIENT WILL BE INDEP AND SAFE WITH GAIT ON LEVEL SURFACES AND UP AND DOWN STEPS WITH LEAST ASSISTIVE DEVICE. Goal Time Frame: 4-6 Weeks Goal Progress: Goal Met Goal 2:: INCREASE FUNCTIONAL ROM OF LEFT LE TO EASE ADL'S NEW GOAL 01/14/21: 01/14/21 Pt. to have increased L knee ROM to 0-0-120deg AROM allowing for good/safe functional mobility. Goal Time Frame: 4-6 Weeks Goal Progress: Progressing Goal 3:: INCREASE FUNCTIONAL STRENGTH OF LEFT LE TO EASE ADL'S NEW GOAL 01/14/21: PT. to have LLE strength increased to 5/5 throuhgout. Goal Time Frame: 4-6 Weeks Goal Progress: Progressing Goal 4:: IMPROVE WOMAC SCORE BY 5 POINTS Goal Time Frame: 4-6 Weeks Goal Progress: Progressing Goal 5:: PATIENT WILL BE INDEP WITH A HEP FOR CONTINUED IMPROVEMENT ONCE FORMAL PHYSICAL THERAPY CONCLUDES. Goal Time Frame: 4-6 Weeks Goal Progress: Goal Met Anticipated Interventions Patient/Client Instruction: Educate patient on: Condition, Plan of Care, Risk Factors For the Purpose of:: To improve self management Therapeutic Exercise to Include: Strength training, Balance training, Body mechanics, Postural training, Flexibilty training, Gait and locomotor training, Neuromotor development, Active ROM, Dynamic Lumbar Stabilization For the Purpose of:: To decrease pain, To improve muscle performance and motor function, To increase tolerance to activity/condition/position, To improve ability of physical actions for home/community/work/leisure, To improve gait and locomotor functions, To decrease soft tissue restriction, To increase flexibility/ROM, To improve balance, To improve safety with gait Cryotherapy (ice pack, ice massage): Yes For the Purpose of:: To decrease pain, To decrease swelling/inflammation Please do not hesitate to contact me at [phone] by phone or if you have questions or concerns regarding this new plan of care! Sincerely, Joseph Reen DPT
--- NOTE | 2021-02-27 14:39 | HP.PTREVAL ---
Ben Kaur PA-C, It has been my pleasure to treat ELEAZAR WATSON over the last 30 visits for OA L KNEE S/P TKR 11/27/20. Please see the progress note below for an update on the physical therapy plan of care! Subjective: Pt reports she is feeling achy today, likely due to the covid vaccine booster shot she received yesterday. She states there is still an ache in her knee at times, but is able to function well. Objective/Function: ROM: Left knee 0-2-121. STRENGTH: left knee :flexion 4+, extension 5. Pt continues to improve in strength and ROM. TU.9 sec without AD Plan Plan: Pt to follow up w/ doctor. Case left open upon hearing from doctor, but expecting to D/C pt. Pt. is overall doing well. She is progressing as epxected. I would like her to continue to work on end range extension ROM, but is progressing. She reports overall minimal issues with her R knee. Pt. reports being pleased. Balance/Gait/Functional tests - Balance/Special Test Scores Lower Extremity Functional Score: 65 TUG Test Time Seconds: 8.5 Tug Test: <10 sec.=free mobile Goals Goal 1:: PATIENT WILL BE INDEP AND SAFE WITH GAIT ON LEVEL SURFACES AND UP AND DOWN STEPS WITH LEAST ASSISTIVE DEVICE. Goal Time Frame: 4-6 Weeks Goal Progress: Goal Met Goal 2:: INCREASE FUNCTIONAL ROM OF LEFT LE TO EASE ADL'S NEW GOAL 01/14/21: 01/14/21 Pt. to have increased L knee ROM to 0-0-120deg AROM allowing for good/safe functional mobility. Goal Time Frame: 4-6 Weeks Goal Progress: Goal Met Goal 3:: INCREASE FUNCTIONAL STRENGTH OF LEFT LE TO EASE ADL'S NEW GOAL 01/14/21: PT. to have LLE strength increased to 5/5 throuhgout. Goal Time Frame: 4-6 Weeks Goal Progress: Progressing Goal 4:: IMPROVE WOMAC SCORE BY 5 POINTS Goal Time Frame: 4-6 Weeks Goal Progress: Progressing Goal 5:: PATIENT WILL BE INDEP WITH A HEP FOR CONTINUED IMPROVEMENT ONCE FORMAL PHYSICAL THERAPY CONCLUDES. Goal Time Frame: 4-6 Weeks Goal Progress: Goal Met Anticipated Interventions Patient/Client Instruction: Educate patient on: Condition, Plan of Care, Risk Factors For the Purpose of:: To improve self management Therapeutic Exercise to Include: Strength training, Balance training, Body mechanics, Postural training, Flexibilty training, Gait and locomotor training, Neuromotor development, Active ROM, Dynamic Lumbar Stabilization For the Purpose of:: To decrease pain, To improve muscle performance and motor function, To increase tolerance to activity/condition/position, To improve ability of physical actions for home/community/work/leisure, To improve gait and locomotor functions, To decrease soft tissue restriction, To increase flexibility/ROM, To improve balance, To improve safety with gait Cryotherapy (ice pack, ice massage): Yes For the Purpose of:: To decrease pain, To decrease swelling/inflammation Please do not hesitate to contact me at [phone] by phone or if you have questions or concerns regarding this new plan of care! Sincerely, Joseph Rene DPT
--- NOTE | 2021-03-07 08:41 | HP.PTDCSUM ---
It has been my pleasure to treat ELEAZAR WATSON referred by Ben Kaur PA-C, with the diagnosis of OA L KNEE S/P TKR 11/27/20 for a total of 31 visit(s). Discharge Date: 03/06/21 Please see the following information for a summary of their discharge status. Subjective: Pt. reports seeing physician who was pleased with all of her ROM and functional mobility. She wanted to get a gym program that she could sprinkle in a few times per week in order to increase LE strength. L knee Pain Intensity (Out of 10): 0 % Improvement: 95 Objective/Function: Pt. given HEP for gym exercises today. She did not like the leg press and will stick with chair squats instead. Pt. is overall doing well. She was given written hand out for HEP today. Pt. reports no new issues. Pt. will be DC from PT at this point in time. Goal 1:: PATIENT WILL BE INDEP AND SAFE WITH GAIT ON LEVEL SURFACES AND UP AND DOWN STEPS WITH LEAST ASSISTIVE DEVICE. Goal Progress: Goal Met Goal 2:: INCREASE FUNCTIONAL ROM OF LEFT LE TO EASE ADL'S NEW GOAL 01/14/21: 01/14/21 Pt. to have increased L knee ROM to 0-0-120deg AROM allowing for good/safe functional mobility. Goal Progress: Goal Met Goal 3:: INCREASE FUNCTIONAL STRENGTH OF LEFT LE TO EASE ADL'S NEW GOAL 01/14/21: PT. to have LLE strength increased to 5/5 throuhgout. Goal Progress: Progressing Goal 4:: IMPROVE WOMAC SCORE BY 5 POINTS Goal Progress: Progressing Goal 5:: PATIENT WILL BE INDEP WITH A HEP FOR CONTINUED IMPROVEMENT ONCE FORMAL PHYSICAL THERAPY CONCLUDES. Goal Progress: Goal Met Plan: DC from PT at this point in time. Discharge Comments: Pt. si doing very well. Pt. has good ROM and strength. She is walking well with good tolerance. Pt. was given HEP for gym exercises today. Pt. will be DC from PT at this point in time. If there are questions or concerns regarding this patient's physical therapy, please feel free to call me at [phone]. Thank you for the referral of this patient. Sincerely, Joseph Larson Sipos, DPT Balance/Gait/Functional tests - Balance/Special Test Scores Lower Extremity Functional Score: 65 TUG Test Time Seconds: 8.5 Tug Test: <10 sec.=free mobile
== END 2021-03-06 19:00 | disposition home or self-care (01) ==
LOC: PT 13:00
PROVIDERS: PCP Family Medicine; Referring Provider Physician Assistant Surgical; Visit Provider Physician Assistant Surgical
DX: M17.12 Unilateral primary osteoarthritis, left knee (principal); M21.162 Varus deformity, not elsewhere classified, left knee
CPT/HCPCS: 97110; 97162; 97164; 97530

== ENCOUNTER 2021-07-26 14:47 | Outpatient (CLI) | payer MEDICARE, SELFPAY ==
[2021-07-26 18:08] LABS: Anion Gap 2 (5-15); BUN 34 mg/dL (7-18); BUN/Creat Ratio 28.3 RATIO (10-20); Calcium,Total 9.1 mg/dL (8.5-10.1); Chloride 105 mmol/L (98-107); EST Glomerular Filtration Rate 47 mL/min (>60); Est Glom Filt Rate - Afr Amer 56 mL/min (>60); Glucose 105 mg/dL (74-106); Potassium 4.2 mmol/L (3.5-5.1); Sodium Level 137 mmol/L (136-145)
== END 2021-07-26 23:59 | disposition home or self-care (01) ==
PROVIDERS: PCP Family Medicine; Referring Provider Family Medicine; Visit Provider Physician Assistant Surgical
DX: N18.9 Chronic kidney disease, unspecified (principal)
CPT/HCPCS: 36415; 80048

== ENCOUNTER 2021-11-27 13:00 | Outpatient (RCR) | payer MEDICARE, SELFPAY ==
--- NOTE | 2021-07-31 13:50 | HP.PTEVAL ---
Patient's Visit Information ELEAZAR WATSON is a 76 year old F referred to Physical Therapy by Dr. Vimal Ojeda MD with a diagnosis of R TKA. Date of Evaluation: 07/29/21 Physical Therapist: Joseph Rene DPT - Visit Plan Frequency: 2-3x /Week Duration: 4-6 Weeks Plan: Start with ROM with progression towards end ranges. Add in muscle activation progressing back to functional strengthening as tolerated. Add in gait training as tolerated, progress back to gait without AD as tolerated. Continue to monitor blister on foot. - Subjective Pt. is here today for her initial evaluation with diagnosis of R TKA. DOS: July 24. Pt. reports overall doing well. She arrives in a wheel chair with reports of forgetting her walker at home. Pt. reports sleeping well. She is walking at home. She does have increased edema in RLE, and also does have a large blister on her dorsal aspect of her R foot. Pt. reports overall doing well. She is sleeping in her bed without issues. Icing at home as prescribed. She reports doing her exercises as prescribed. She guzman not have much pain and is overall pleased. No calf pain noted. No fever, no difficulty breathing. She is hopeful to increase her ROM and strength in order to get back to all recreational walking and traveling without issues. - Pain R knee Pain Intensity (Out of 10): 2 Pain Intensity Range: 1, 6 - Objective POSTURE: Pt. has normal posture in stance. Slight flexed R knee with slight increased wt. shift to L side. PALPATION: pt. have increased swelling throughout her R leg, she also has a blister on top of her R foot near meta tarsals. NEURO: Pt. has normal sensation and normal DTR of B Achilles bilaterally. ROM: R knee 0-5-88deg., passively 0-3-92deg. Pt. has tight HS bilaterally. MMT: RLE: knee: ext 0#, flexion 6#; hip: flexion 0#, abd 0#. GAIT: Pt. is able to ambulate with FWW with slight flexed posture. She lacks TKE on R side, but overall good tolerance. TUsec with FWW. - Balance/Special Test Scores Lower Extremity Functional Score: 0 WOMAC Total Score: 54 WOMAC Percentatge: 43.7500 - Goals Goal 1:: LTG: Pt. to be I with HEP. Goal Time Frame: 4-6 Weeks Goal 2:: STG: Pt. to have increased R knee ROM to 0-0-120deg without increase in symptoms. Goal Time Frame: 2-4 Weeks Goal 3:: LTG: Pt. to have increased R LE strength by 10# throughout RLE musculature. Goal Time Frame: 4-6 Weeks Goal 4:: STG: Pt. ambulate with FWW unlimited distances without increase in symptoms. Goal Time Frame: 2-4 Weeks Goal 5:: LTG: pt. to ambulate with normal gait pattern, with SPC for 500'+. Goal Time Frame: 4-6 Weeks Goal 6:: LTG: pt. to have TUG increased to less than 10sec with us - Rehabilitation Potential Physical Therapy Diagnosis: Pt. has signs and symptoms consistent with R TKA. Pt. has subsequent R knee hypomobility, weakness, and difficulty walking. She would benefit from PT to address the above limitations progressing back to all functional and recreational activities without limitations. Rehabilitation Potential: Excellent - Anticipated Interventions Patient/Client Instruction: Educate patient on: Condition, Plan of Care, Risk Factors, Benefits of Fitness Program For the Purpose of:: To improve decision making, To facilitate caregiver knowledge, To improve self management, To prevent re-injury, To improve ability to perform tasks related to life management Cryotherapy (ice pack, ice massage): Yes Vasopneumatic device: Yes For the Purpose of:: To decrease pain, To decrease swelling/inflammation, To increase ROM, To improve nutrient delivery to tissue Thank you for the opportunity to evaluate your patient. For Medicare and Medicare HMO plans, please review the plan of care and approve it. It will need to be FAXED BACK to us at [phone] for Medicare purposes. For Medicare only, by signing this I certify the plan of care. Please let me know if there are questions or concerns regarding this plan of care. Physician Signature: Date:
--- NOTE | 2021-09-10 09:22 | HP.PTREVAL_ITS ---
Dr. Vimal Ojeda MD, It has been my pleasure to treat ELEAZAR WATSON over the last 13 visits for R TKA 07/23/21. Please see the progress note below for an update on the physical therapy plan of care! Subjective: Pt. saw physician who was pleased with ROM and strength and overall mobility. He was concerned about her xrays. She reports that her 2 week post op and 6 week post op show a a shift compared to post surgical xray. Pt. reports no pain. He does want to see her in 4 weeks. She reports overall doing well. Pt. has no pain pre treatment this date. Objective/Function: R knee ROM: 0-0-121deg. mild increase NW with flexion. MMT: R knee: flexion 22.4#, flexion 18.3#. R hip 4+/5 throughout. Mild HS tightness noted in BLEs. TU.2sec without AD. STAIRS: Pt. negotiated stairs with 2 HR with reciprocal pattern without increase in symptoms or antalgic pattern. GAIT: Pt. ambulates without Ad, She does lack TKE during stance phase, good flexion during swing phase. Pt. reports no pain. Overall from a physical stand point she is doing well. Cont. to monitor symptoms. I would like her strength to be a bit better and her gait pattern to improve allowing for overall increased I and safety. Plan Plan: Cont. to progress safety with functional mobility, RLE strengthening, gait mechanics. Balance/Gait/Functional tests - Balance/Special Test Scores Lower Extremity Functional Score: 0 TUG Test Time Seconds: 11.2 Tug Test: <20 sec.=mostly independent WOMAC Total Score: 54 WOMAC Percentage: 43.7500 Goals Goal 1:: LTG: Pt. to be I with HEP. Goal Time Frame: 4-6 Weeks Goal Progress: Progressing Goal 2:: STG: Pt. to have increased R knee ROM to 0-0-120deg without increase in symptoms. Goal Time Frame: 2-4 Weeks Goal Progress: Goal Met Goal 3:: LTG: Pt. to have increased R LE strength by 10# throughout RLE musculature. Goal Time Frame: 4-6 Weeks Goal 4:: STG: Pt. ambulate with FWW unlimited distances without increase in symptoms. Goal Time Frame: 2-4 Weeks Goal Progress: Progressing Goal 5:: LTG: pt. to ambulate with normal gait pattern, with SPC for 500'+. Goal Time Frame: 4-6 Weeks Goal Progress: Progressing Goal 6:: LTG: pt. to have TUG increased to less than 10sec with us Goal Progress: Progressing Anticipated Interventions Patient/Client Instruction: Educate patient on: Condition, Plan of Care, Risk Factors, Benefits of Fitness Program For the Purpose of:: To improve decision making, To facilitate caregiver k nowledge, To improve self management, To prevent re-injury, To improve ability to perform tasks related to life management Cryotherapy (ice pack, ice massage): Yes Vasopneumatic device: Yes For the Purpose of:: To decrease pain, To decrease swelling/inflammation, To increase ROM, To improve nutrient delivery to tissue Please do not hesitate to contact me at [phone] by phone or if you have questions or concerns regarding this new plan of care! Sincerely, LARA CentenoT
--- NOTE | 2021-09-30 12:40 | HP.PTREVAL ---
Dr. Vimal Ojeda MD, It has been my pleasure to treat ELEAZAR WATSON over the last 20 visits for R TKA 07/23/21. Please see the progress note below for an update on the physical therapy plan of care! Subjective: Pt. reports overall doing better. She reports being 75% better overall. She continues to report being hesitant with walking without cane due to fear of fall. Pt. reports no pain in her knee today. She reports being HEP compliant with her stretching and strengthening exercises. She is getting out more in community without limitations. Objective/Function: ROM: R knee 0-0-120deg actively, passively: 0-0-123deg. MMT: RLE: ankle 5/5 throughout; knee: ext 23.5#, flexion 22#; hip: flexion 21#, abd 12#. LLE: ankle 5/5 throughout; knee: ext 28#, flexion 30#; hip: flexion 28#, abd 18#. GAIT: Pt. ambulates with SPC with increased lateral hip sway. She was able to ambulate without, but has increased sway and mild increase in symptoms. STAIRS: pt. is able to negotiate steps with 2 HR with reciprocal pattern without issues with ascending and descending. TU.6sec with SPC. 6 MWT: 508feet with SPC, 5:01sec needed rest period due to fatigue. Plan Plan: I will recertification 1-2 per week for 3 weeks until she sees her physician at the end of the month. Work on hip and quad strength. Add in gait progression and work on endurance. Balance/Gait/Functional tests - Balance/Special Test Scores Lower Extremity Functional Score: 49 TUG Test Time Seconds: 11.2 Tug Test: <20 sec.=mostly independent WOMAC Total Score: 54 WOMAC Percentage: 43.7500 Goals Goal 1:: LTG: Pt. to be I with HEP. Goal Time Frame: 4-6 Weeks Goal Progress: Goal Met Goal 2:: STG: Pt. to have increased R knee ROM to 0-0-120deg without increase in symptoms. Goal Time Frame: 2-4 Weeks Goal Progress: Goal Met Goal 3:: LTG: Pt. to have increased R LE strength by 10# throughout RLE musculature. Goal Time Frame: 4-6 Weeks Goal Progress: Progressing Goal 4:: STG: Pt. ambulate with FWW unlimited distances without increase in symptoms. Goal Time Frame: 2-4 Weeks Goal Progress: Goal Met Goal 5:: LTG: pt. to ambulate with normal gait pattern, with SPC for 500'+. Goal Time Frame: 4-6 Weeks Goal Progress: Progressing Goal 6:: LTG: pt. to have TUG increased to less than 10sec with us Goal Progress: Progressing Anticipated Interventions Patient/Client Instruction: Educate patient on: Condition, Plan of Care, Risk Factors, Benefits of Fitness Program For the Purpose of:: To improve decision making, To facilitate caregiver knowledge, To improve self management, To prevent re-injury, To improve ability to perform tasks related to life management Cryotherapy (ice pack, ice massage): Yes Vasopneumatic device: Yes For the Purpose of:: To decrease pain, To decrease swelling/inflammation, To increase ROM, To improve nutrient delivery to tissue Please do not hesitate to contact me at [phone] by phone or if you have questions or concerns regarding this new plan of care! Sincerely, Joseph Rene DPT
--- NOTE | 2021-10-21 15:20 | HP.PTREVAL ---
Dr. Vimal Ojeda MD, It has been my pleasure to treat ELEAZAR WATSON over the last 24 visits for R TKA 07/23/21. Please see the progress note below for an update on the physical therapy plan of care! Subjective: Pt. reports no pain today. She reports being pleased with progress. Pt. to follow up with physician later this week. Pt. reports being 80% better overall. Objective/Function: Pt. did well with PT this date. ROM: 0-0-120deg no pain noted. Pt. has small amount of edema, but minimal. 5/5 strength noted throughout. Pt. does ambulate with slight flexed posture. Pt. does ambulate with slight flexed knee posture in stance, and does use SPC for comfort. She is able to ambulate without, but prefers to use cane. STAIRS: 1 HR with reciprocal pattern. No pain noted. Plan Plan: Overall she is doing well. She is to follow up with physician later this week to determine further plan. Balance/Gait/Functional tests - Balance/Special Test Scores Lower Extremity Functional Score: 57 TUG Test Time Seconds: 11.2 Tug Test: <20 sec.=mostly independent WOMAC Total Score: 54 WOMAC Percentage: 43.7500 Goals Goal 1:: LTG: Pt. to be I with HEP. Goal Time Frame: 4-6 Weeks Goal Progress: Goal Met Goal 2:: STG: Pt. to have increased R knee ROM to 0-0-120deg without increase in symptoms. Goal Time Frame: 2-4 Weeks Goal Progress: Goal Met Goal 3:: LTG: Pt. to have increased R LE strength by 10# throughout RLE musculature. Goal Time Frame: 4-6 Weeks Goal Progress: Progressing Goal 4:: STG: Pt. ambulate with FWW unlimited distances without increase in symptoms. Goal Time Frame: 2-4 Weeks Goal Progress: Goal Met Goal 5:: LTG: pt. to ambulate with normal gait pattern, with SPC for 500'+. Goal Time Frame: 4-6 Weeks Goal Progress: Progressing Goal 6:: LTG: pt. to have TUG increased to less than 10sec with us Goal Progress: Progressing Anticipated Interventions Patient/Client Instruction: Educate patient on: Condition, Plan of Care, Risk Factors, Benefits of Fitness Program For the Purpose of:: To improve decision making, To facilitate caregiver knowledge, To improve self management, To prevent re-injury, To improve ability to perform tasks related to life management Cryotherapy (ice pack, ice massage): Yes Vasopneumatic device: Yes For the Purpose of:: To decrease pain, To decrease swelling/inflammation, To increase ROM, To improve nutrient delivery to tissue Please do not hesitate to contact me at [phone] by phone or if you have questions or concerns regarding this new plan of care! Sincerely, LARA CentenoT
== END 2021-11-27 19:00 | disposition home or self-care (01) ==
LOC: PT 13:00
PROVIDERS: PCP Family Medicine; Referring Provider Specialist; Visit Provider Specialist
DX: M17.11 Unilateral primary osteoarthritis, right knee (principal); M21.061 Valgus deformity, not elsewhere classified, right knee
CPT/HCPCS: 97110; 97140; 97161; 97164

== ENCOUNTER → 2022-02-18 | Outpatient (CLI) | payer MEDICARE, SELFPAY | END | disposition home or self-care (01) | LOC: MFPLAB 10:17 | PROVIDERS: PCP Family Medicine; Referring Provider Family Medicine; Visit Provider Family Medicine | DX: Z00.00 Encounter for general adult medical examination without abnormal findings (principal) ==

== ENCOUNTER → 2022-02-24 | Outpatient (CLI) | payer MEDICARE, SELFPAY ==
[2022-02-24 16:15] LABS: AST(SGOT) 18 U/L (15-37); Alanine Aminotransfer ALT/SGPT 26 U/L (13-56); Cholesterol 109 mg/dL (200); High Density Lipoprotein 53 mg/dL; Triglycerides 112 mg/dL; Very Low Density Lipoprotein 22 mg/dL (5-40)
== END | disposition home or self-care (01) ==
LOC: MFPLAB 13:59
PROVIDERS: PCP Family Medicine; Visit Provider Family Medicine
DX: I10 Essential (primary) hypertension (principal)
CPT/HCPCS: 36415; 80061; 84450; 84460

== ENCOUNTER → 2022-02-26 | Outpatient (CLI) | payer MEDICARE, SELFPAY ==
--- NOTE | 2022-02-26 13:05 | BI_ITS ---
MAMMOGRAPHY - BILATERAL SCREENING REASON FOR EXAM: Female, 76 years old. Routine annual screening examination. PERTINENT HISTORY: Mother with breast cancer. Aunt with breast cancer. TECHNIQUE: Digital bilateral breast juma (3D mammographic acquisition) in the CC and MLO projections. 2-D mediolateral oblique (MLO) and craniocaudad (CC) views of both breasts were obtained. CAD: Full Field Digital Mammography with Computer Added Detection was performed. COMPARISON: Comparison is made with prior study 05/31/2018 and 11/27/2016 FINDINGS: Breast Composition: The breasts are almost entirely fatty. There are no dominant masses or suspicious calcifications. Stable small benign appearing bilateral axillary lymph nodes. No other significant abnormalities are identified. There has been no significant change since the prior study. BI/SCRN MAMM (CAD)W/JUMA BILAT IMPRESSION: Stable bilateral screening mammogram. Yearly follow-up mammogram recommended. (A) ASSESSMENT CATEGORY: BIRADS Category 2: Benign. A letter regarding these results will be sent to the patient by the facility within 30 days. Approximately 10% of breast cancers are not detected by mammography. A normal mammogram should not delay biopsy of a clinically suspicious abnormality. [id number] Electronically Signed: Aguilar Allen MD at 13:56 EDT ,
== END | disposition home or self-care (01) ==
LOC: OPBI 13:03
PROVIDERS: PCP Family Medicine; Referring Provider Family Medicine; Visit Provider Family Medicine
DX: Z12.31 Encounter for screening mammogram for malignant neoplasm of breast (principal); Z80.3 Family history of malignant neoplasm of breast
CPT/HCPCS: 77063; 77067

== ENCOUNTER → 2022-09-12 | Outpatient (CLI) | payer MEDICARE, SELFPAY ==
[2022-09-12 18:48] LABS: AST(SGOT) 21 U/L (15-37); Alanine Aminotransfer ALT/SGPT 26 U/L (13-56); Anion Gap 4 (5-15); BUN 36 mg/dL (7-18); Calcium,Total 9.3 mg/dL (8.5-10.1); Chloride 105 mmol/L (98-107); Cholesterol 111 mg/dL (200); Creatinine, Serum 1.09 mg/dL (0.55-1.02); EST Glomerular Filtration Rate 52 mL/min (>60); Est Glom Filt Rate - Afr Amer 63 mL/min (>60); Glucose 139 mg/dL (74-106); High Density Lipoprotein 61 mg/dL; Potassium 4.6 mmol/L (3.5-5.1); Sodium Level 139 mmol/L (136-145); Triglycerides 75 mg/dL; Very Low Density Lipoprotein 15 mg/dL (5-40)
== END | disposition home or self-care (01) ==
LOC: MFPLAB 14:31
PROVIDERS: PCP Family Medicine; Visit Provider Family Medicine
DX: I10 Essential (primary) hypertension (principal); E78.00 Pure hypercholesterolemia, unspecified
CPT/HCPCS: 36415; 80048; 80061; 84450; 84460

== ENCOUNTER → 2023-09-15 | Outpatient (CLI) | payer MEDICARE, SELFPAY ==
[2023-09-15 17:56] LABS: AST(SGOT) 21 U/L (15-37); Alanine Aminotransfer ALT/SGPT 24 U/L (13-56); Anion Gap 9 (5-15); BUN 29 mg/dL (7-18); BUN/Creat Ratio 24.8 RATIO (10-20); Calcium,Total 9.7 mg/dL (8.5-10.1); Chloride 102 mmol/L (98-107); Cholesterol 116 mg/dL (200); Creatinine, Serum 1.17 mg/dL (0.55-1.02); EST Glomerular Filtration Rate 48 mL/min (>60); Est Glom Filt Rate - Afr Amer 58 mL/min (>60); Glucose 123 mg/dL (74-106); High Density Lipoprotein 57 mg/dL; Potassium 3.9 mmol/L (3.5-5.1); Sodium Level 138 mmol/L (136-145); Triglycerides 84 mg/dL; Very Low Density Lipoprotein 17 mg/dL (5-40)
== END | disposition home or self-care (01) ==
LOC: MFPLAB 14:04
PROVIDERS: PCP Family Medicine; Visit Provider Family Medicine
DX: E66.01 Morbid (severe) obesity due to excess calories (principal); Z68.41 Body mass index [BMI] 40.0-44.9, adult; E78.00 Pure hypercholesterolemia, unspecified; I10 Essential (primary) hypertension
CPT/HCPCS: 36415; 80048; 80061; 83036; 84450; 84460

== ENCOUNTER → 2024-04-12 | Outpatient (CLI) | payer MEDICARE, SELFPAY ==
--- NOTE | 2024-04-12 12:19 | BI_ITS ---
MAMMOGRAPHY - BILATERAL SCREENING REASON FOR EXAM: Female, 78 years old. Routine annual screening examination. PERTINENT HISTORY: Mother with breast cancer. Aunt with breast cancer. TECHNIQUE: Digital bilateral breast juma (3D mammographic acquisition) in the CC and MLO projections. 2-D mediolateral oblique (MLO) and craniocaudad (CC) views of both breasts were obtained. CAD: Full Field Digital Mammography with Computer Added Detection was performed. COMPARISON: Comparison is made with prior study dated February 26, 2022 and May 31, 2018. FINDINGS: Breast Composition: The breasts are almost entirely fatty. There are no dominant masses or suspicious calcifications. Stable small benign-appearing bilateral axillary lymph nodes. No other significant abnormalities are identified. There has been no significant change since the prior study. BI/SCRN MAMM (CAD)W/JUMA BILAT IMPRESSION: Stable bilateral screening mammogram. Yearly follow-up mammogram recommended. (A) ASSESSMENT CATEGORY: BIRADS Category 2: Benign. A letter regarding these results will be sent to the patient by the facility within 30 days. Approximately 10% of breast cancers are not detected by mammography. A normal mammogram should not delay biopsy of a clinically suspicious abnormality. [id number] Electronically Signed: Aguilar Allen MD at 13:19 EST ,
== END | disposition home or self-care (01) ==
LOC: OPBI 12:19
PROVIDERS: PCP Family Medicine; Referring Provider Family Medicine; Visit Provider Family Medicine
DX: Z12.31 Encounter for screening mammogram for malignant neoplasm of breast (principal); Z80.3 Family history of malignant neoplasm of breast
CPT/HCPCS: 77063; 77067

== ENCOUNTER → 2024-08-19 | Outpatient (CLI) | payer MEDICARE, SELFPAY ==
[2024-08-19 18:22] LABS: AST(SGOT) 23 U/L (<=31); Alanine Aminotransfer ALT/SGPT 18 U/L (<=34); Anion Gap 11 (5-15); BUN 29 mg/dL (4-19); BUN/Creat Ratio 20.3 RATIO (10-20); Calcium,Total 9.4 mg/dL (7.6-11.0); Carbon Dioxide 26.2 mmol/L (21.0-32.0); Chloride 102 mmol/L (98-108); Cholesterol 107 mg/dL (<=200); Creatinine, Serum 1.43 mg/dL (0.70-1.20); EST Glomerular Filtration Rate 38 (>60); Glucose 102 mg/dL (70-99); High Density Lipoprotein 53 mg/dL; Low Density Lipoprotein Calc. 35 mg/dL; Potassium 4.1 mmol/L (3.3-5.1); Sodium Level 139 mmol/L (133-145); Triglycerides 92 mg/dL; Very Low Density Lipoprotein 18 mg/dL (5-40); cholesterol:hdl ratio screen 2.01
== END | disposition home or self-care (01) ==
LOC: MFPLAB 14:46
PROVIDERS: PCP Family Medicine; Referring Provider Family Medicine; Visit Provider Family Medicine
DX: E78.00 Pure hypercholesterolemia, unspecified (principal); I10 Essential (primary) hypertension
CPT/HCPCS: 36415; 80048; 80061; 84443; 84450; 84460